=== PATIENT | male | born 1990 | race Caucasian/White ===

== ENCOUNTER 2021-10-07 03:48 | Emergency (ER) | payer SELFPAY ==
[~2021-10-07] VITALS: Ht 160 cm; Wt 68.1 kg
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
[2021-10-07] MEDS ORDERED: LIDOCAINE 1%/EPI 1:100,000 20 ML VIAL. INJ ONE (04:00)
[2021-10-07 04:03] VITALS: BP 126/85
--- NOTE | 2021-10-07 05:15 | RAD ---
CT head without contrast. CT cervical spine without contrast PQRS statement: CT scans at this facility use dose reduction including either automated exposure cont rol, iterative reconstructions, and /or weight based radiation dosing via mA and kV modification when appropriate to reduce radiation dose to as low as reasonably achievable. HISTORY: Head injury, scalp laceration, syncope, found down, evaluate head. CT head findings: No intracranial hemorrhage, mass, hydrocephalus, extra-axial fluid collections or i nfarction. Left lower frontal scalp laceration with mild soft tissue edema. Mastoids and bones are un remarkable. IMPRESSION: No acute intracranial CT abnormality. Left supraorbital frontal scalp laceration with mil d soft tissue swelling. No skull fracture. CT cervical spine findings: A small portion of the anterior-inferior vertebral corner of the C7 verte bra is not included in the [id number]. 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 Crania l cervical junction intact. Cervical vertebral body height and alignment intact. No fracture of the i robert cervical spine. Paraspinal tissues are unremarkable. IMPRESSION: No acute osseous injury of the cervical spine. Please see above. Electronically signed by: Hakan Covarrubias MD (10/07/2021 5:13 AM) [facility]
== END 2021-10-07 04:58 | disposition left against medical advice (07) ==
LOC: ER 03:48
DX: S01.112A Laceration without foreign body of left eyelid and periocular area, initial encounter (principal); Y28.8XXA Contact with other sharp object, undetermined intent, initial encounter; Y93.89 Activity, other specified; Y92.89 Other specified places as the place of occurrence of the external cause; Y99.8 Other external cause status
CPT/HCPCS: 12013; 70450; 72125; 99284; J3490